=== PATIENT | female | born 1975 | race Asian ===

== ENCOUNTER 2021-05-28 20:48 | Emergency (ER) | payer OTHER ==
[~2021-05-28] VITALS: Ht 154.9 cm; Wt 97.5 kg
[2021-05-28 21:21] LABS: PLATELET COUNT 195 K/uL (152-353)
[2021-05-28 21:44] LABS: POTASSIUM 2.4 mmol/L (3.6-5.2)
[2021-05-28 22:08] VITALS: BP 118/85; TEMP 98.3
[2021-05-29] MEDS ORDERED: ALLO100T22 PO (08:42)
[2021-05-29] MEDS ORDERED: PACERONE200 MG PO (08:43)
[2021-05-29] MEDS ORDERED: CALCIUM600 M1 PO (08:44)
[2021-05-29] MEDS ORDERED: CLARITIN10 M1 PO (08:45)
[2021-05-29] MEDS ORDERED: FERROUS SULF325 M1 PO (08:46)
[2021-05-29] MEDS ORDERED: XALATAN0.005 % OPTH (08:48)
[2021-05-29] MEDS ORDERED: OMEPRAZOLE DR20 MG PO (08:49)
[2021-05-29] MEDS ORDERED: METO50TA63 PO (08:53)
[2021-05-29] MEDS ORDERED: TRAZODONE HYDRO50 MG PO (08:54)
[2021-05-29] MEDS ORDERED: VITAMIN D2000 UNI3 PO (08:54)
[2021-05-29] MEDS ORDERED: TIKOSYN250 MCG PO (08:56)
[2021-05-29] MEDS ORDERED: XARELTO15 MG PO (08:56)
== END 2021-05-28 22:08 | disposition still patient (30) ==
LOC: ED 20:48
PROVIDERS: Hospitalist
DX: F32.89 Other specified depressive episodes (principal); F03.91 Unspecified dementia, unspecified severity, with behavioral disturbance; R45.88 Nonsuicidal self-harm; Z11.52 Encounter for screening for COVID-19; Z04.6 Encounter for general psychiatric examination, requested by authority
CPT/HCPCS: 80053; 85027; 87635; 96372; 99283; J0696; U0003

== ENCOUNTER 2021-06-30 22:49 | Inpatient (IN) | payer OTHER ==
[~2021-06-30] VITALS: Ht 144.8 cm; Wt 89.5 kg
[~2021-06-30 22:49] MED LIST: ALLO100T22 PO; BACLOFEN20 MG PO; CALCIUM600 M1 PO; CHOL100034 PO; CLARITIN10 M1 PO; ERYTOIN OPTH; ESCI10TA PO; FERROUS SULF325 M1 PO; FURO40TA93 PO; IPRAAER INH; KLOR-CON M2020 MEQ PO; METO-837 PO; METO2.5T3 PO; METO50TA63 PO; OMEPRAZOLE DR20 MG PO; PACERONE200 MG PO; PANTOPRAZOLE 40MG TA PO; PREGABALIN50 MG PO; QUET25TA2 PO; SENNA8.6 MG PO; TIKOSYN250 MCG PO; TRAMADOL HYDROC50 MG PO; TRAZODONE HYDRO50 MG PO; VITAMIN D2000 UNI3 PO; XALATAN0.005 % OPTH; XARELTO15 MG PO
[2021-06-30 22:50] VITALS: BP 143/96; TEMP 98.1
[2021-06-30 23:50] LABS: PLATELET COUNT 227 K/uL (152-353)
[2021-07-01] VITALS (17 sets, daily range): BP systolic 101–147; BP diastolic 45–91; TEMP 97.8–98.6; Ht 144.8 cm; Wt 89.5 kg
[2021-07-01 01:04] LABS: POTASSIUM 2.3 mmol/L (3.6-5.2)
[2021-07-01 01:49] LABS: PARTIAL THROMBOPLASTIN TIME 30.1 SECONDS (24.5-33.6)
[2021-07-01 07:46] LABS: PLATELET COUNT 212 K/uL (152-353)
[2021-07-01 08:17] LABS: POTASSIUM 3.4 mmol/L (3.6-5.2)
== END 2021-07-01 14:17 | disposition short-term general hospital (02) | DRG 640 ==
LOC: ED 22:49 → ICU 07-01 02:30
PROVIDERS: Emergency Medicine; ADMIT Internal Medicine Endocrinology, Diabetes & Metabolism; ATTEND Internal Medicine Endocrinology, Diabetes & Metabolism
DX: E87.6 Hypokalemia (principal); I21.4 Non-ST elevation (NSTEMI) myocardial infarction; G82.20 Paraplegia, unspecified; F33.3 Major depressive disorder, recurrent, severe with psychotic symptoms; A18.01 Tuberculosis of spine; I43 Cardiomyopathy in diseases classified elsewhere; F03.91 Unspecified dementia, unspecified severity, with behavioral disturbance; N18.32 Chronic kidney disease, stage 3b; E03.8 Other specified hypothyroidism; G47.09 Other insomnia; E11.22 Type 2 diabetes mellitus with diabetic chronic kidney disease
CPT/HCPCS: 36415; 80048; 80053; 82550; 83880; 84484; 85027; 85610; 85730; 87635; 93005; 96365; 96366; 99285; J1644; U0003